=== PATIENT | male | born 1950 | race Caucasian/White ===

== ENCOUNTER 2016-08-01 08:41 | Emergency (ER) | payer OTHER ==
[~2016-08-01] VITALS: Ht 182.9 cm; Wt 122.5 kg
--- NOTE | ~2016-08-01 | EKG ---
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: : 1950 Requested By: Isaac Willett Order Number: [id number] MD: Naga Camargo Measurements Intervals [place] Rate: 81 P: 6 LA: 134 QRS: -18 QRSD: 85 T: -1 QT: 389 QTc: 452 Interpretive Statements Sinus rhythm Borderline left axis deviation Borderline T wave abnormalities Baseline wander in lead(s) V6 Compared to ECG 05/08/2016 01:30:18 T-wave abnormality now present Sinus tachycardia no longer present Ventricular premature complex(es) no longer present Electronically Signed On 08-02-2016 8:32:11 CDT by Naga Camargo [email or web address] <ELECTRONICALLY SIGNED> By: Naga Camargo MD, [facility] 08/02/16 0832 [id number] Naga Camargo MD, [facility] /EPI
[~2016-08-01 08:41] MED LIST: OSELB75 PO; PREDNISONE 10 M10 MG PO
[2016-08-01 09:17] LABS: ABSOLUTE NEUTROPHILS 4.2 thou/uL (1.4-8.2); BASOPHILS 0.8 % (0.0-2.0); EOSINOPHILS 2.2 % (0.0-3.0); HEMATOCRIT 42.1 % (42.0-52.0); HEMOGLOBIN 14.7 gm/dL (14.0-18.0); LYMPHOCYTES 35.1 % (24.0-44.0); MCH 30.1 pg (26.0-34.0); MCHC 34.9 g/dL (28.0-37.0); MCV 86.1 fL (80.0-100.0); MONOCYTES 8.3 % (1.0-8.0); PLATELET COUNT 309 thou/uL (150-400); POLYS 53.6 % (36.0-66.0); RBC 4.89 mil/uL (4.50-6.00); RDW 13.7 % (10.5-14.5); WBC 7.8 thou/uL (4.0-11.0)
[2016-08-01 09:29] LABS: ANION GAP 5 mmol/L (7-16); BUN 23 mg/dL (7-18); CALCIUM 8.4 mg/dL (8.5-10.1); CHLORIDE 103 mmol/L (98-107); CO2 32 mmol/L (21-32); CREATININE 1.1 mg/dL (0.7-1.3); GLUCOSE 127 mg/dL (74-106); POTASSIUM 3.7 mmol/L (3.5-5.1); SODIUM 140 mmol/L (136-145)
[2016-08-01 09:30] LABS: MANUAL DIFF NO
[2016-08-01 09:41] LABS: NT-PRO BRAIN NAT PEPTIDE 139 pg/mL (<300); TROPONIN-I < 0.04 ng/mL (<0.04-0.07)
[2016-08-01 09:45] LABS: URINE BILIRUBIN NEGATIVE (Negative); URINE BLOOD NEGATIVE (Negative); URINE COLOR YELLOW; URINE GLUCOSE-RANDOM* NEGATIVE (Negative); URINE KETONES NEGATIVE (Negative); URINE NITRITE NEGATIVE (Negative); URINE PROTEIN (DIPSTICK) TRACE (Negative); URINE SPECIFIC GRAVITY 1.015 (1.003-1.035); URINE UROBILINOGEN 0.2 E.U./dl (0.2-1.0)
[2016-08-01 09:46] LABS: SSA (PROTEIN CONFIRMATORY) NEGATIVE (Negative)
[2016-08-01] MEDS ORDERED: NORVASC10 MG PO (11:03)
[2016-08-01] MEDS ORDERED: LISINOPRIL20 MG PO (11:03)
== END 2016-08-01 11:31 | disposition still patient (30) ==
LOC: ER 08:41
PROVIDERS: Emergency Medicine
DX: I10 Essential (primary) hypertension (principal)

== ENCOUNTER 2018-04-03 20:06 | Inpatient (IN) | payer OTHER ==
[~2018-04-03] VITALS: Ht 182.9 cm; Wt 123.4 kg
--- NOTE | ~2018-04-03 | 2DMMODE ---
[facility] [place] [address] 2 D/M-MODE ECHOCARDIOGRAM Name: MAURICIOFAIZA TITUS Room #: 349-I ADM IN [facility]#: [id number] Admission: 04/03/18 Attend Phys: Lauren Cárdenas MD Discharge: Date of : 48 Date of Service: 04/06/18 1214 Report #: [id number] THIS REPORT FOR: //name// APPROVED REPORT Study performed: 04/06/2018 10:24:13 EXAM: Comprehensive 2D, Doppler, and color-flow Echocardiogram Patient Location: In-Patient Room #: 349 Status: routine BSA: 2.43 HR: 75 bpm BP: 131/76 mmHg Other Information Study Quality: Adequate Indications CVA/TIA Hypertension/HDD Echo Enhancing Agent Indication: Rule out Shunt Agent(s) / Amount(s) Used: Agitated Saline 6 cc 2D Dimensions RVDd: 33.27 mm IVSd: 11.56 (7-11mm) LVOT Diam: 22.73 (18-24mm) LVDd: 49.85 mm PWd: 13.20 (7-11mm) Ascending Ao: 34.66 (22-36mm) LVDs: 37.96 (25-40mm) Aortic Root: 31.06 mm IVC: 18.00 mm Volumes Left Atrial Volume (Systole) Single Plane 4CH: 68.71 mL Single Plane 2CH: 57.48 mL LA ESV Index: 28.00 mL/m2 Aortic Valve AoV Peak Brown.: 1.40 m/s AO Peak Gr.: 7.87 mmHg LVOT Max P.92 mmHg LVOT Max V: 0.99 m/s JOE Vmax: 2.86 cm2 [facility] [place] [address] [place] [address] 2 D/M-MODE ECHOCARDIOGRAM Name: MAURICIOFAIZA TITUS Room #: 349-I [facility] IN ..#: [id number] Admission: 04/03/18 Attend Phys: Lauren Cárdenas MD Discharge: Date of : 48 Date of Service: 04/06/18 1214 Report #: [id number] Mitral Valve E/A Ratio: 0.8 MV Decel. Time: 201.99 ms MV E Max Brown.: 0.88 m/s MV A Brown.: 1.09 m/s MV PHT: 58.58 ms IVRT: 103.81 ms Pulmonary Valve PV Peak Brown.: 0.89 m/s PV Peak Gr.: 3.19 mmHg Pulmonary Vein P Vein S: 0.61 m/s P Vein A: 0.29 m/s P Vein D: 0.33 m/s P Vein A Dur.: 145.3 msec P Vein S/D Ratio: 1.85 Tricuspid Valve RAP Estimate: 5.00 mmHg Left Ventricle The left ventricle is normal size. There is normal LV segmental wall motion. There is normal left ventricular wall thickness. The left ventricular systolic function is normal. The left ventricular ejection fraction is within the normal range. LVEF is 50%. Mild diastolic dysfunction is present (impaired relaxation pattern). Right Ventricle The right ventricle is normal size. The right ventricular systolic function is normal. Atria The left atrium size is normal. No shunting by contrast bubble injection. The right atrium size is normal. Aortic Valve The aortic valve is normal in structure. No aortic regurgitation is present. There is no aortic valvular stenosis. Mitral Valve The mitral valve is normal in structure. There is no mitral valve regurgitation noted. No evidence of mitral valve stenosis. Tricuspid Valve The tricuspid valve is normal in structure. There is no tricuspid valve regurgitation noted. Unable to assess PA pressure. [facility] [address] [place] [address] 2 D/M-MODE ECHOCARDIOGRAM Name: FAIZA MARTÍNEZ Room #: 349-I [facility] IN [facility].#: [id number] Admission: 04/03/18 Attend Phys: Lauren Cárdenas MD Discharge: Date of : 48 Date of Service: 04/06/18 1214 Report #: [id number] Pulmonic Valve The pulmonary valve is normal in structure. Trace pulmonic regurgitation. Great Vessels The aortic root is normal in size. IVC is normal in size and collapses >50% with inspiration. Pericardium There is no pericardial effusion. <Conclusion> The left ventricular systolic function is normal. There is normal LV segmental wall motion. LVEF 55%. Mild diastolic dysfunction No shunting by contrast bubble injection. The aortic valve is normal in structure. No aortic regurgitation or stenosis The mitral valve is normal in structure. No mitral insufficiency Unable to assess pulmonary artery pressure. There is no pericardial effusion. <ELECTRONICALLY SIGNED> By: Naga Camargo MD, [facility]ACC 04/06/18 1214 13 13 Naga Camargo MD, FACC /INF
--- NOTE | ~2018-04-03 | HC ---
[facility] [place] [place] [address] CONSULTATION Name: MARTÍNEZFAIZA QURESHI Room #: 349-I [facility] IN M.R.#: [id number] Admission: 04/03/18 Attend Phys: Lauren Cárdenas MD Discharge: 04/06/18 Date of : 48 Report #: [id number] THIS REPORT FOR: //name// CC: Akshat Hobbs DATE OF SERVICE: 04/04/2018 HISTORY OF PRESENT ILLNESS: This is a 67-year-old male patient who was discussed with the Emergency Room physician last night. I talked to the patient today. He gives a history that on Friday morning, he got up and he was numb. It was mainly his face, but his arm and leg got involved as the day progressed. He gives a history that another coworker was having some trouble with the right hand and he took him to Urgent Care. They could not do anything about his friend because they did not have x-ray facility but when he mentioned his symptoms to them, they told him to go to the Emergency Room. That is the reason he came to Emergency Room. He has been stable since then. His symptoms are moderately severe. Nothing makes it better or worse. REVIEW OF SYSTEMS: His 14-point review of systems is complicated. He has hypertension, virtually all his adult life. At one time, he used to be on medication, but then he decided that he wants to do it without medication and he tried to lose weight and do exercise but looks like his blood pressure continued to be high, but he indicated it has not been as high as it was when he came in. He indicates that usually his blood pressure runs about 150-160 systolic. He did not have any clinical strokes in the past. He thinks his last cholesterol was okay but here, his LDL is high. He does have a prostate problem and he does appear to have some hematuria. He does not have any chest pain, any respiratory difficulty or any GI symptom. He does have some nonspecific musculoskeletal but no constitutional, dermatological or hematological symptom. He does appear to have dyslipidemia. He does not have any allergy or any throat symptom. PAST MEDICAL HISTORY: Negative for any clinical stroke. FAMILY HISTORY: Negative for any early age stroke. 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 He does not smoke or drink any alcohol except once a year. PHYSICAL EXAMINATION: NEUROLOGICAL: Indicate he is alert, responsive, oriented, able to follow simple and complex command. His speech, concentration, fund of knowledge and memory is at his baseline. Cranial nerve examination 2 through 12 looks unremarkable. Neuromuscular examinations indicate his position sense is diminished on the right side. Touch may be altered. His reflexes are symmetrical. Tone is [facility] [address] [place] [address] CONSULTATION Name: FAIZA MARTÍNEZ Room #: 349-I [facility] IN ..#: [id number] Admission: 04/03/18 Attend Phys: Lauren Cárdenas MD Discharge: 04/06/18 Date of : 48 Report #: [id number] symmetrical. There is no cerebellar sign. I could not look at the fundus. GENERAL: He is a very well-built individual. He has no dysmorphic features of eyes, ears and face. HEENT: His vision and hearing looks adequate. EXTREMITIES: He has no edema, cyanosis or jaundice. Pulses are difficult to tell. CARDIAC: Examinations appear unremarkable. LUNGS: No respiratory difficulty or rhonchi was noticed. VITAL SIGNS: His blood pressure is 165/98, respiration is 16, pulse is 66 and temperature is 98.3. When he came in, his blood pressure was 212/107. LABORATORY DATA: His labs indicate white count of 8.8 and his LDL is 128. His HDL is only 33. His sed rate is normal. RADIOLOGICAL DATA: Multiple imaging studies were reviewed and the patient has a finding consistent with an acute CVA. It is in the left thalamic area, which will correspond with the patient's symptoms. He has multiple T2 hyperintensities, which would be consistent with a lacunar stroke. IMPRESSION: 1. 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 2. Chronic white matter ischemic changes and lacunar cerebrovascular accident. 3. Dyslipidemia. 4. Noncompliance. RECOMMENDATIONS: 1. Full dose aspirin. 2. He will need intensive statin therapy. 3. He has a history of hematuria. He goes to urologist. He needs to follow up on that, but present symptoms appeared to be secondary to his hypertension. 4. He needs to do lose weight and the biggest thing is he needs to control his hypertension. Original plan was to keep his blood pressure around 160 systolic. This is because when he came in, his blood pressure was very high, but he usually does not stay high according to him and he monitors that. Because of that, we can cautiously try to lower the blood pressure and can keep it even , but it should not be lowered too much and after a permissive hypertension for about another day it can be lowered somewhere between 140 and 160 and then over a period of time, he really needed to lower it closer to 120 systolic. All of it was discussed with the patient. He understood it very well and he wanted to follow this plan. <ELECTRONICALLY SIGNED> By: Lisandro Bermudez MD 04/07/18 1446 1436 [id number] MD rodri Padilla
--- NOTE | ~2018-04-03 | EKG ---
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: JESSIKA : 1950 Requested By: Myranda Puga Order Number: [id number] MD: Naga Camargo Measurements Intervals [place] Rate: 83 P: 31 MA: 153 QRS: -10 QRSD: 82 T: 17 QT: 389 QTc: 457 Interpretive Statements Sinus rhythm No significant abnormality Compared to ECG 08/01/2016 08:57:40 T-wave abnormality no longer present Electronically Signed On 04-04-2018 10:59:48 [employer] by Naga Camargo [email or web address] <ELECTRONICALLY SIGNED> By: Naga Camargo MD, [facility] 04/04/18 1059 23 23 Naga Camargo MD, [facility] /EPI
[~2018-04-03 20:06] MED LIST changes: +LISINOPRIL20 MG PO; +NORVASC10 MG PO
[2018-04-03 20:07] VITALS: BP 212/107
[2018-04-03] MEDS ORDERED: LIPITOR 20 MG T20 M1 PO (20:27)
[2018-04-03] MEDS ORDERED: IBUPROFEN 200200 M1 PO (20:28)
[2018-04-03 20:48] LABS: ABSOLUTE NEUTROPHILS 5.3 thou/uL (1.4-8.2); BASOPHILS 0.7 % (0.0-2.0); EOSINOPHILS 1.6 % (0.0-3.0); HEMATOCRIT 43.6 % (42.0-52.0); HEMOGLOBIN 15.1 gm/dL (14.0-18.0); LYMPHOCYTES 30.4 % (24.0-44.0); MCH 29.8 pg (26.0-34.0); MCHC 34.6 g/dL (28.0-37.0); MCV 86.3 fL (80.0-100.0); MONOCYTES 6.6 % (1.0-8.0); PLATELET COUNT 342 thou/uL (150-400); POLYS 60.7 % (36.0-66.0); RBC 5.05 mil/uL (4.50-6.00); RDW 13.2 % (10.5-14.5); WBC 8.8 thou/uL (4.0-11.0)
[2018-04-03 21:02] LABS: APTT 22.9 Seconds (24.5-32.8); PROTIME 9.6 Seconds (9.3-11.4)
[2018-04-03 21:40] LABS: CALCIUM 8.2 mg/dL (8.5-10.1); POTASSIUM 3.8 mmol/L (3.5-5.1)
[2018-04-03 22:58] VITALS: BP 151/67
[2018-04-03 23:45] VITALS: BP 173/102
[2018-04-04 03:20] VITALS: BP 192/109
[2018-04-04 06:13] LABS: CHOLESTEROL 174 mg/dL (<200); HDL CHOLESTEROL 33 mg/dL (>40); LDL CHOLESTEROL 128 mg/dL (<100); SERUM ASSESSMENT Clear; TC:HDL 5.3 Ratio (Not establshd); TRIGLYCERIDE 66 mg/dL (<150); VLDL 13 mg/dL (<40)
[2018-04-04 07:45] VITALS: BP 169/100
[2018-04-04 09:17] LABS: AMP/METHAMP Negative (Negative); BARBITURATES Negative (Negative); BENZODIAZEPINES Negative (Negative); COCAINE Negative (Negative); METHADONE Negative (Negative); OPIATES Negative (Negative); PCP Negative (Negative)
[2018-04-04 11:16] VITALS: BP 165/98
[2018-04-04 15:25] VITALS: BP 184/106
[2018-04-04 17:47] VITALS: BP 174/95
[2018-04-04 19:39] VITALS: BP 185/85
[2018-04-05 05:00] VITALS: BP 168/101
[2018-04-05 07:33] VITALS: BP 180/111
[2018-04-05 10:32] VITALS: BP 149/84
[2018-04-05 15:04] VITALS: BP 161/94
[2018-04-05 19:44] VITALS: BP 176/92
[2018-04-05 23:32] VITALS: BP 171/91
[2018-04-06 01:03] VITALS: BP 165/82
[2018-04-06 05:06] VITALS: BP 158/98
[2018-04-06 07:44] VITALS: BP 131/76
[2018-04-06 11:49] VITALS: BP 129/76
[2018-04-06 15:53] VITALS: BP 129/76
[2018-04-06] MEDS ORDERED: COLACE 100 MG100 MG PO (15:59)
[2018-04-06] MEDS ORDERED: COZAAR 50 MG TA50 M1 PO (15:59)
[2018-04-06] MEDS ORDERED: AMLODIPINE BESY10 MG PO (15:59)
[2018-04-06] MEDS ORDERED: ATORVASTATIN CA40 MG PO (15:59)
[2018-04-06] MEDS ORDERED: ASPIRIN325 PO (15:59)
[2018-04-06] MEDS ORDERED: ACETAMINOPHEN325 M1 PO (15:59)
[2018-04-06 16:33] VITALS: BP 129/76
== END 2018-04-06 18:07 | disposition home health service (06) | DRG 65 ==
LOC: ER 20:06 → EROBS 22:36 → 4N 22:36 → 3W 22:36 → 4N 04-05 13:34 → 3W 04-05 14:20 → ENTRNSPT 04-06 17:26 → 3W 04-06 18:07
PROVIDERS: Emergency Medicine; Nurse Practitioner Acute Care
DX: I63.9 Cerebral infarction, unspecified (principal); I50.30 Unspecified diastolic (congestive) heart failure; I16.0 Hypertensive urgency; E78.5 Hyperlipidemia, unspecified; G31.9 Degenerative disease of nervous system, unspecified; I11.0 Hypertensive heart disease with heart failure; Z91.14 Patient's other noncompliance with medication regimen; Z85.46 Personal history of malignant neoplasm of prostate; Z79.899 Other long term (current) drug therapy; Z82.49 Family history of ischemic heart disease and other diseases of the circulatory system; Z80.1 Family history of malignant neoplasm of trachea, bronchus and lung; Z81.2 Family history of tobacco abuse and dependence; Z82.3 Family history of stroke
CPT/HCPCS: 10879